=== PATIENT | female | born 1975 | race Two or more races ===

== ENCOUNTER 2016-09-02 21:28 | Emergency (ER) | payer SELFPAY ==
[~2016-09-02] VITALS: Ht 160 cm; Wt 61.2 kg
[2016-09-02] MEDS ORDERED: MORPHINE SULFATE INJ 4 MG/ML DISP.SYRIN ONE (22:26)
[2016-09-02] MEDS ORDERED: CYCLOBENZAPRINE 10 MG TABLET ONE (22:26)
[2016-09-02] MEDS ORDERED: ONDANSETRON HCL/PF 4 MG/2 ML VIAL ONE (22:26)
[2016-09-02] MEDS ORDERED: ONDANSETRON HCL/PF - ER 4 MG/2 ML VIAL IM ONE (22:30)
[2016-09-02] MEDS ORDERED: CYCLOBENZAPRINE 10 MG TABLET PO ONE (22:30)
[2016-09-02] MEDS ORDERED: MORPHINE SULFATE INJ 2 MG/ML DISP.SYRIN IM ONE (22:30)
[2016-09-03 01:43] VITALS: BP 116/62
== END 2016-09-03 01:43 | disposition home or self-care (01) ==
LOC: ER 21:31
DX: M54.5 Low back pain (principal); M54.16 Radiculopathy, lumbar region; G89.29 Other chronic pain
CPT/HCPCS: 72131; 84703; 93005; 96372 ×2; 99285; J2270; J2405